=== PATIENT | female | born 1995 | race Caucasian/White ===

== ENCOUNTER → 2024-08-03 06:59 | Outpatient (CLI) | payer OTHER, SELFPAY ==
[2024-08-03 07:48] LABS: Add Manual Diff / Slide Review NO; Basophils Absolute Auto 0 /uL (0-100); Basophils Percent Auto 0.5 % (0-2); Eosinophils Absolute Auto 300 /uL (0-450); Eosinophils Percent Auto 4.8 % (2-4); Hematocrit 42.1 % (36-46); Hemoglobin 14.3 g/dL (12.0-16.0); Lymphocytes Absolute Auto 2600 /uL (1100-4500); Lymphocytes Percent Auto 41.2 % (25-40); Mean Corpuscular HGB Conc 33.9 % (30-36); Mean Corpuscular Volume 85.6 fL (80-100); Monocytes Absolute Auto 300 /uL (0-900); Monocytes Percent Auto 4.1 % (3-14); Neutrophils Absolute Auto 3100 /uL (1500-7000); Neutrophils Percent Auto 49.4 % (50-75); Platelet Count 258 X10^3/uL (150-400); Red Blood Cell Count 4.92 X10^6/uL (4.0-5.2); Red Cell Distribution Width 12.8 % (11.6-14.8); White Blood Cell Count 6.3 X10^3/uL (4.5-11.0)
[2024-08-03 07:58] LABS: Hemoglobin A1C% w Est Avg Glu 4.8 % (4.0-6.0)
[2024-08-03 08:11] LABS: HEMOLYSIS < 15 (0-50); Iron 31 ug/dL (37-170)
[2024-08-03 08:15] LABS: Alanine Aminotransferase 20 IU/L (<35); Albumin Globulin Ratio 1.6 (1.0-2.8); Alkaline Phosphatase 72 U/L (38-126); Aspartate Aminotransferase 21 IU/L (14-36); BUN Creatinine Ratio 13.8 (6-22); Blood Urea Nitrogen 11 mg/dL (7-17); Calcium 9.1 mg/dL (8.4-10.2); Carbon Dioxide 25 mmol/L (22-32); Chloride 104 mmol/L (98-107); Estimated Glomerular Filt Rate > 60 mL/min (>60); Globulin 2.5 g/dL (1.7-4.1); Glucose 166 mg/dL (70-99); HEMOLYSIS < 15 (0-50); Potassium 4.1 mmol/L (3.4-5.1); Sodium 138 mmol/L (137-145); Total Protein 6.5 g/dL (6.3-8.2)
[2024-08-03 08:21] LABS: Percent Iron Saturation 10 % (15-50); Total Iron Binding Capacity 301 ug/dL (265-497); Transferrin 233 mg/dL (206-381)
[2024-08-03 08:48] LABS: Ferritin 23 ng/mL (6-137)
== END ==
PROVIDERS: PCP Family Medicine; Referring Provider Family Medicine; Visit Provider Family Medicine
DX: R19.7 Diarrhea, unspecified (principal); R55 Syncope and collapse; I49.9 Cardiac arrhythmia, unspecified; R00.1 Bradycardia, unspecified; E16.2 Hypoglycemia, unspecified; I10 Essential (primary) hypertension
CPT/HCPCS: 36415; 80053; 82728; 83036; 83540; 83550; 84443; 85025

== ENCOUNTER → 2024-08-09 12:20 | Outpatient (CLI) | payer OTHER, SELFPAY ==
[2024-08-11 21:39] LABS: Deamidated Gliadin Ab IgA 4 units (0-19); Deamidated Gliadin Ab IgG 2 units (0-19); Immunoglobulin A,Qn 205 mg/dL (87-352); t-Transglutaminase IgA <2 U/mL (0-3)
== END ==
PROVIDERS: PCP Family Medicine; Referring Provider Family Medicine; Visit Provider Family Medicine
DX: R19.7 Diarrhea, unspecified (principal); R55 Syncope and collapse; I49.9 Cardiac arrhythmia, unspecified; E16.2 Hypoglycemia, unspecified; R00.1 Bradycardia, unspecified; I10 Essential (primary) hypertension
CPT/HCPCS: 36415; 82784; 83516

== ENCOUNTER → 2024-08-10 07:47 | Outpatient (CLI) | payer OTHER, SELFPAY | PROVIDERS: PCP Family Medicine; Referring Provider Family Medicine; Visit Provider Family Medicine | DX: R55 Syncope and collapse (principal); I49.9 Cardiac arrhythmia, unspecified; R00.1 Bradycardia, unspecified | CPT/HCPCS: 93246; 93248 ==

== ENCOUNTER → 2024-08-31 06:50 | Outpatient (CLI) | payer OTHER, SELFPAY ==
--- NOTE | 2024-08-31 06:51 | DI.ECHO.S_ITS ---
[facility] +---------+ [facility] : : [address] : : [place] : : [id number] : : Phone: [phone] Echocardiogram Report + + :Name: ISA ORTIZ Study Date: 08/31/2024 Height: 64 in : :Hospital ReadingLocation: Weight: 145 lb : : Gender: Female BSA: 1.7 m2 : :: 1995 Age: 29 yrs BP: 146/91 mmHg: :Reason For Study: PRE SYNCOPE, IRREGULAR HEART RATE, : :BRADYCARDIA : :Ordering Physician: LOUIE, : :JULIAN Maher Performed By: Sylvia Vaca : :Referring: JULIAN PALMA : + + Interpretation Summary The left ventricle is normal in size and wall thickness. The ejection fraction is estimated to be 60-65%. Diastolic parameters suggest probable normal left ventricular diastolic function and normal filling pressures. The right ventricle is normal in size and function. Pulmonary artery pressures cannot be estimated because of the lack of a measurable TR jet velocity but the IVC suggests a CVP of around 3 mmHg. The left atrial size is normal. There is no significant valvular heart disease. The aortic root is normal size. Procedure: A two-dimensional transthoracic echocardiogram with color flow and Doppler was performed. The study quality was technically adequate. There is no prior echocardiogram noted for this patient. The patient was in sinus rhythm with heart rates between 53-72 bpm during the exam. Left Ventricle: The left ventricle is normal in size and wall thickness. The ejection fraction is estimated to be 60-65%. Diastolic parameters suggest probable normal left ventricular diastolic function and normal filling pressures. Right Ventricle: The right ventricle is normal in size and function. Atria: The left atrial size is normal. Right atrial size is normal. There is no Doppler evidence for an interatrial shunt. Mitral Valve: The mitral valve leaflets appear to open well. There is trace mitral regurgitation. Aortic Valve: The aortic valve is trileaflet. The aortic valve opens well. There is no aortic valve stenosis. No aortic regurgitation is present. Tricuspid Valve: The tricuspid valve leaflets are thin and pliable. There is trace tricuspid regurgitation. Pulmonary artery pressures cannot be estimated because of the lack of a measurable TR jet velocity but the IVC suggests a CVP of around 3 mmHg. Pulmonic Valve: The pulmonic valve leaflets are thin and pliable; valve motion is normal. There is no pulmonic valvular regurgitation. There is no significant valvular heart disease. Great Vessels: The aortic root is normal size. The dimensions of the ascending aorta are normal. The IVC is of normal diameter and collapses greater than 50% with a sniff. This suggests a low right atrial pressure of 3 mm Hg. Pericardium/ Pleura There is no pericardial effusion. There is no pleural effusion. MMode/2D Measurements & Calculations LVIDd: 4.3 cm LVOT diam: 1.9 cm LVIDs: 2.9 cm Ao root diam: 2.7 cm FS: 31.8 % asc Aorta Diam: 2.9 cm IVSd: 0.56 cm Ao Arch Diam (Prox Trans): 2.5 cm LVPWd: 0.69 cm LV telles. diameter/BSA (cm/m^2): 2.5 LV sys. diameter/BSA (cm/m^2): 1.7 LA A2 area: 18.0 cm2 RA long axis: 5.1 cm LA A4 area: 17.3 cm2 RA area: 13.2 cm2 LA length (vol): 5.5 cm RA vol: 29.1 ml LA vol: 48.4 ml RA : 17.1 ml/m2 LA vol index: 28.4 ml/m2 IVC diam: 1.2 cm RVD1 (basal): 3.6 cm RVD2 (mid): 3.0 cm TAPSE: 2.4 cm Doppler Measurements & Calculations Ao V2 max: 155.5 cm/sec LVOT Max Ishaan: 111.2 cm/sec Ao V2 mean: 103.1 cm/sec LV V1 max P.9 mmHg Ao max P.7 mmHg LV V1 VTI: 23.4 cm Ao mean P.9 mmHg JIGNESH(I,D): 2.3 cm2 Ao V2 VTI: 29.2 cm JIGNESH(V,D): 2.0 cm2 sev ratio: 0.80 JIGNESH indexed to BSA (cm^2/m^2): 1.3 MV E max ishaan: 92.1 cm/sec PA V2 max: 98.2 cm/sec MV A max ishaan: 50.1 cm/sec PA V2 mean: 66.3 cm/sec MV E/A: 1.8 PA mean P.0 mmHg Med Peak E' Ishaan: 16.3 cm/sec PA pr(Accel): 28.5 mmHg E/E' med: 5.6 Lat Peak E' Ishaan: 16.1 cm/sec E/E' lat: 5.7 E/e' average: 5.7 MV dec time: 0.22 sec SV(LVOT): 66.3 ml Reading Physician:04:19 PM
== END ==
PROVIDERS: PCP Family Medicine; Referring Provider Family Medicine; Visit Provider Family Medicine
DX: R55 Syncope and collapse (principal); I49.9 Cardiac arrhythmia, unspecified; R00.1 Bradycardia, unspecified
CPT/HCPCS: 93306

== ENCOUNTER → 2024-09-07 14:51 | Outpatient (CLI) | payer OTHER, SELFPAY ==
--- NOTE | 2024-09-20 13:52 | DIAB.MNT ---
Addendum entered by Barbara Wright 11/18/24 10:11: Not a T2Dm diagnosis. Corrected dx: Hypoglycemia Original Note: Initial Medical Nutrition Therapy Assessment Name: Montserrat Espinal Date: 09/07/24 Time: 3-350p Dx: Type II Diabetes Provider: Deirdre Mariano presents for initial MNT visit, accompanied by her Suhail. Reports frequent hypoglycemia, down into the 60-70mg/dl range. Reports feeling shaky, lightheaded, and spacey when low. Endorses interest in CGM. Currently doing frequent fingersticks. States she aims for a high protein, low fat diet. Denies any h/o Dm or GDM. Reports eating q 1.5 hours to keep BG in a range that feels comfortable physically. This has resulted in wt gain. Feels good at 100-115mg/dl. Had loss of teeth from health challenges during last . Soft foods preferred. Denture fitting September 20. Goes through a large jar of PB q week eating PB sandwiches. Tries to manage BG with cost effective snacks, ie sandwiches. States she is working from home x 4 years (since last ) due to symptoms of lows and eating frequency. Diet Recall: 8a: leftovers from dinner 930-10a: 1/2 PB sandwich 1130-12: leftobers from dinner 130-2p: 1/2 pb sandwich 3-330p: chicken nuggets or leftovers 5p: half pb sandwich 630-7p: green beans, 1c corn or potatoes x 1c, chicken 0oz water Mellow yellow soda 12oz x 7-10 Anthropometrics: Ht: 5'4 Wt: 147# 07/2024 Physical Activity: not discussed today Self-Monitoring Blood Glucose: Frequent finger sticks through the day. Reports BG often 70-130mg/dl, though highest reading 166mg/dl and lowest in the 60s. None for review today. Self placed CGM sample today. Pertinent Labs: HGA1c: 4.8% 07/2024 166 H glucose Nutrition Rx: Carbohydrates: Meal:45g Snack:15-30g Nutrition Diagnosis: - Excessive kcal intake r/t attempts to keep BG up with high kcal foods aeb pt report/diet recall - Excessive CHO intake r/t soda intake aeb diet recall and pt report Intervention: This participant was very receptive. Provided appropriate educational handouts. Discussed the following topics: Completed intake assessment. Discussed barriers to care. Pathophysiology of BG changes, potential for over reaction of pancreas creating lows Impact of high soda intake on BG and potential for reactive hypoglycemia CGM education, precautions, OTC and coupon options, self placement and use Plate Method, impact of macronutrients on blood sugar, meal timing, pairing macronutrients Recommended servings for carbohydrates at meals and snacks Lower kcal snacks for sustaining BG Brainstormed appropriate meal/snack ideas based on food preferences Created SMART goals for patient self-care and success. Goals: Wear CGMx 15 days Try a new snack Try a new sugar free drink Follow-up: HOWIE ALFREDO follow-up in 3 weeks Barbara Wright RDN, JUNI Certified Diabetes Care and [employer] P: [phone] Thank you for this referral
== END ==
LOC: DIET 14:51
PROVIDERS: PCP Family Medicine; Referring Provider Family Medicine
DX: E11.9 Type 2 diabetes mellitus without complications (principal); Z71.3 Dietary counseling and surveillance
CPT/HCPCS: 97802

== ENCOUNTER → 2024-09-15 08:35 | Outpatient (CLI) | payer OTHER, SELFPAY ==
[2024-09-15 09:45] LABS: Follicle Stimulating Hormone 11.1 mIU/mL; Luteinizing Hormone 43.9 mIU/mL; Prolactin 21.4 ng/mL (3.0-18.6)
== END ==
LOC: LAB 08:36
PROVIDERS: PCP Family Medicine; Referring Provider Family Medicine; Visit Provider Family Medicine
DX: E66.3 Overweight (principal); R55 Syncope and collapse; N93.9 Abnormal uterine and vaginal bleeding, unspecified
CPT/HCPCS: 36415; 83001; 83002; 84146

== ENCOUNTER → 2024-09-29 10:42 | Outpatient (CLI) | payer OTHER, SELFPAY ==
--- NOTE | 2024-09-29 10:43 | DI.US.S_ITS ---
PROCEDURE: US PELVIC COMPLETE INDICATIONS: ABNORMAL UTERINE BLEEDING TECHNIQUE: Real-time scanning was performed of the pelvic organs, with image documentation. Additional endovaginal scanning was necessary due to incomplete visualization of the adnexal and endometrial structures by transabdominal scanning. COMPARISON: None. FINDINGS: Uterus: Uterus is anteverted and normal in size at 7.0 x 4.5 x 4.4 cm. The myometrium is heterogeneous with mild vertical shadowing and somewhat globular configuration of the uterine fundus. The endometrium measures 5.4 mm combined thickness. Ovaries: The right ovary measures 2.5 x 2.0 x 1.9 cm, with a calculated ovarian volume of 5.0 cc. The left ovary measures 2.2 x 1.4 x 1.4 cm, with a calculated ovarian volume of 2.3 cc. Right ovarian thick-walled 1.6 cm cyst is likely a regressing physiologic cyst. The ovaries have a normal sonographic appearance. Less than 12 follicles can be seen in each ovary. No adnexal masses are seen. Other: No pathologic free abdominal or pelvic fluid. IMPRESSION: Heterogeneous myometrium can be seen in the setting of adenomyosis. Approved by: Shawn Varela M.D. on 09/29/2024 at 15:32
== END ==
PROVIDERS: PCP Family Medicine; Referring Provider Family Medicine; Visit Provider Family Medicine
DX: N93.9 Abnormal uterine and vaginal bleeding, unspecified (principal)
CPT/HCPCS: 76830; 76856

== ENCOUNTER → 2024-11-29 15:02 | Outpatient (CLI) | payer OTHER, SELFPAY ==
--- NOTE | 2024-11-29 15:04 | DIAB.MNTFU ---
Follow-up Medical Nutrition Therapy Assessment Name: Montserrat Espinal Date: 11/29/24 Time: 3-330p Diagnosis: Hypoglycemia Provider: LaithMartha Montserrat presents for MNT visit virtually using Portal. No CGM right now due to one CGM failure and waiting on pharmacy for refill. Though seems she may not need it now. Over the last two weeks, she has had some low symptoms, shaky/feeling off, right before eating, but otherwise much less/improved. Feels her weight has gone up and having a tough time getting it down. Most of her life reports 115-120#, would even be happy at 130#. Endorses about a 20# gain over the last few months since managing low BG symptoms. Now can go up to 4 hours without eating, which is a big improvement. Does not like frozen foods or pre cooked foods. Tries to batch cook homemade foods. Endorses being really picky Avoiding juice. Occasional soda. If not working late, no afternoon snack, will have dinner instead. Diet Recall: 815-820a: leftovers 1130-12p: sandwich on [employer] buns x1 with roasted peanuts handful or 1oz chips or fruit or leftovers 4:30p: 1/2 pbj or peanuts or yogurt 8-10p: lasagna OR taco salad without chips OR chx quesadilla half OR meatloaf, baked potato 1 small/cheese/matamoros bits HS snack: nothing or small ice cream cone water lately r/t UTI Anthropometrics: Ht: 5'4 Wt: 154# 11/2024 reported 147# 07/2024 Physical Activity: walking 3-6 miles per day. Self-Monitoring Blood Glucose: None at this time. Last TIR: 0% very high or high 100% in range 0% low 103mg/dl average 5.8% GMI 17.6% variance Pertinent Labs: HGA1c: 4.8% 07/2024 166 H glucose Nutrition Rx: Carbohydrates: Meal:45gSnack:15-30g Nutrition Diagnosis: - Excessive kcal intake r/t attempts to keep BG up with high kcal foods aeb pt report/diet recall- improved - Nutrition and food related knowledge deficit r/t needing more info on wt management aeb pt report- new Intervention: This participant was very receptive. Provided appropriate educational handouts. Discussed the following topics: Wt management strategies Expectations for BG and symptoms when going hours without eating Encouraged fruit and vegetables Potential pro/cons to tracking food intake and tools Reevaluating the need for BG monitoring at this time Goals: If BG <70 without symptoms, check with fingerstick to confirm prior to tx- met If BG <70 with symptoms, eat CHO- met Eat q 3 hours-met Try tracking food intake- new Avoid beverages with kcals- new Follow-up: HOWIE ALFREDO follow-up in 3-4 weeks Barbara Wright RDN, JUNI Certified Diabetes Care and [employer] P: [phone] Thank you for this referral
== END ==
LOC: DIET 15:03
PROVIDERS: PCP Family Medicine; Referring Provider Family Medicine
DX: E16.2 Hypoglycemia, unspecified (principal); Z71.3 Dietary counseling and surveillance
CPT/HCPCS: 97803

== ENCOUNTER → 2025-01-25 09:15 | Outpatient (CLI) | payer OTHER, SELFPAY | PROVIDERS: Obstetrics & Gynecology; PCP Family Medicine; Referring Provider Family Medicine; Visit Provider Family Medicine | DX: N93.9 Abnormal uterine and vaginal bleeding, unspecified (principal); R10.9 Unspecified abdominal pain; R19.7 Diarrhea, unspecified; R79.89 Other specified abnormal findings of blood chemistry | CPT/HCPCS: 36415; 84146; 85651 ==

== ENCOUNTER → 2025-01-25 10:56 | Outpatient (CLI) | payer OTHER, SELFPAY | PROVIDERS: PCP Family Medicine; Referring Provider Family Medicine; Visit Provider Family Medicine | DX: R10.9 Unspecified abdominal pain (principal); R19.7 Diarrhea, unspecified | CPT/HCPCS: 36415; 83993; 84146; 85651; 87329 ==